=== PATIENT | male | born 1990 | race African-American/Black ===

== ENCOUNTER 2016-12-17 03:00 | Inpatient (IN) | payer OTHER ==
[~2016-12-17] VITALS: Ht 170.2 cm; Wt 53.1 kg
--- NOTE | ~2016-12-17 | PN ---
Unit #: [id number] #: [id number] Patient: ISAMAR ROGERS [id number] [facility] [address] [place] [address] [id number] MR#: [id number] NAME: ISAMAR ROGERS ROOM: P266 Age: 26 Sex: M Admission Date: 12/17/2016 : 1990 Attending Physician: Genoveva Moran M.D. Admitting Physician: Genoveva Moran M.D. Primary Care Physician: Primary Care Physician Leida GAMBOA PROGRESS NOTES DATE December 17, 2016 DISCUSSION Mr. Rogers is a 26-year-old male, who was seen today and chart was reviewed and the case was discussed with the staff. He remains anxious, withdrawn, depressive, and seclusive to himself, and has been expressing feelings of hopelessness. Meanwhile, he has been taking the medications and tolerating them fairly well with no reported side effects. MENTAL STATUS EXAMINATION Young male, who was casually dressed with fair personal hygiene and appears to be in no acute distress or discomfort. He was awake and alert with intact orientation. His mood is anxious and very depressed with a congruent affect. His speech is slow and restricted in content. He reports having suicidal ideations but denies any homicidal ideations, and also denies any auditory or visual hallucinations. His insight and judgment remain slightly impaired. TREATMENT PLAN 1. We will continue him on his current medications and treatment protocol, and will monitor his response to the medications, and make further adjustments as needed. 2. We will continue to followup. Dictated by... Adan Barbour/jerri TD: 12/19/2016 04:59 JOB #: [id number] Unit #: [id number] #: [id number] Patient: ISAMAR ROGERS COOPER PROGRESS NOTES Page 1 of 1 X Genoveva Moran MD PROGRESS NOTE
--- NOTE | ~2016-12-17 | A ---
[facility] Nutrition Therapy DATE: 12/18/16 Patient: ISAMAR RIVERA Physician: AFAIRF Address: [address] [place] [address] Room/Bed: [address], Zip: [place] [address] Admit Date: 12/17/16 Date of : [birth year] Height: 5 7 Weight: [phone] NUTRITIONAL ASSESSMENT: REASON: LOW BMI (18.3) PATIENT ADMITTED FOR SI AND DEPRESSION PMH: NONE Anthropometrics: HT: 67', WT: 117#, BMI: 18.3 Labs: NO LABS AVAILABLE Meds: CELEXA Assessment: PATIENT IS A 26 Y/O MALE ADMITTED FOR SI AND DEPRESSION. PATIENT IS CURRENTLY UNEMPLOYED, LIVES WITH HIS MOTHER, SMOKES 1 PPD, AND HAS WEEKLY ETOH AND MARIJUANA USE. IT IS NOTED THAT PATIENT HAS A HX OF OUTPATIENT PSYCH TREATMENT AND HE HAS BEEN NON-COMPLIANT WITH HIS MEDICATIONS. PER NEEDS ASSESSMENT PATIENT STATED A POOR APPETITE WITH A 20# WEIGHT LOSS OVER LAST SEVERAL MONTHS, AND HE HAS NOT BEEN SLEEPING. THERE IS NO WEIGHT HX RECORDED IN [facility]. NURSING REPORTS GOOD PO INTAKES. THERE ARE NO SKIN OR GI ISSUES NOTED ATT. CURRENT PSYCH MEDS MAY CAUSE WEIGHT AND APPETITE FLUCTUATIONS. PATIENT IS ON A REGULAR DIET. Dx: INADEQUATE NUTRIENT INTAKE R/T CURRENT CONDITION, DEPRESSION AEB LOW BMI, SELF-REPORTED WEIGHT LOSS AND DECREAESED APPETITE Intervention: REGULAR DIET, LARGER PORTIONS, MEDS PER MD, PSYCH Monitoring, Evaluation and Goals: 1. ADEQUATE PO INTAKES >50% OF MEALS 2. PREVENT, CORRECT MICRO/MACRO NUTRIENT DEFICIENCIES 3. WEIGHT; PROMOTE A STEADY WEIGHT GAIN TOWARDS A HEALTHY BMI OF 19-25, PREVENT WEIGHT LOSS MONITOR: WEIGHTS, LABS, PO/FLUID INTAKES Recommendations: 1. CONTINUE REGULAR DIET TOLERATED. OFFER SNACKS BETWEEN MEALS. WILL INCREASE ENTREES TO LARGER PORTIONS D/T NEED FOR INCREASED CALORIC INTAKE 2. ENCOURAGE ADEQUATE PO AND FLUID INTAKES 3. OBTAIN WEIGHTS ROUTINELY (EVERY 3-4 DAYS) [facility] Nutrition Therapy DATE: 12/18/16 Patient: ISAMAR RIVERA Physician: AFAIRF Address: [address] [place] [address] Room/Bed: [address], Zip: [place] [address] Admit Date: 12/17/16 Date of : [birth year] Height: 5 7 Weight: [id number] 4. IF PO INTAKES ARE BELOW 50% OF MEALS PLEASE ORDER ENSURE BID TO PROMOTE ADEQUATE KCAL AND PROTEIN INTAKES RD TO F/U PER PROTOCOL AND PRN R/T PATIENT MILDLY COMPROMISED Respectfully, APRIL NAIK, RD, LD Food and Nutritional Services [facility] cc: client file
--- NOTE | ~2016-12-17 | PA ---
Unit #: [id number] #: [id number] Patient: ISAMAR RIVERA [id number] [facility] [address] [place] [address] [id number] I MR#: [id number] NAME: ISAMAR RIVERA ROOM: P266 Age: 26 Sex: M Admission Date: 12/17/2016 : 1990 Date of Assessment: 12/17/2016 Attending Physician: Genoveva Moran M.D. Admitting Physician: Genoveva Moran M.D. Primary Care Physician: Primary Care Physician No PSYCHIATRIC ASSESSMENT DATE OF SERVICE 12/17/2016. IDENTIFYING DATA Mr. Petty is a 26-year-old, single, male who is a resident of [place], [place], and was transferred to us from [facility] on a mental inquest warrant which was dropped on 12/15/2016 and he was brought in again today by crisis intervention team after his mother called stating that the patient had a gun in his room and was holding it to his head. CHIEF COMPLAINT "I have stress building up and I feel suicidal." HISTORY OF PRESENT ILLNESS Mr. Rivera is a 26-year-old male with history of mood disorder, who is known to me from previous encounter, has been diagnosed with mood disorder, who was brought to the hospital by crisis intervention team after his mother called stating that the patient has been depressed and suicidal and has been in his room holding a gun to his head, and the patient was calm and cooperative and upon presentation, although was depressed with blunted affect, and was tearful and stated that he has been depressed lately due to issues with seeing his 8-month-old child and difficulty with the child's mother and also reports difficulty with his own mother with whom he lives and reports recent weight loss, poor sleep, poor appetite, and psychomotor retardation, feelings of hopelessness and helplessness, and suicidal ideations. He also reports loss of interest in doing things and that he threatened to hurt himself to get attention and also make statement "someone really want to do something, you won't be able to stop them." However, he was seen to be significant threat to himself and therefore, recommendation for inpatient level of care for safety and stabilization was made and the patient was transferred to us. SUBSTANCE ABUSE HISTORY The patient reports occasional experimentation with alcohol and cannabis, but denies any regular drug abuse. PAST PSYCHIATRIC HISTORY The patient has had history of outpatient psychiatric treatment at [facility] in the past and has a trial of Effexor, but reports that made me even worse and therefore, he has not been able to take his medication. Unit #: [id number] #: [id number] Patient: ISAMAR RIVERA PAST MEDICAL HISTORY No acute or chronic medical illnesses. ALLERGIES No known medication allergies. CURRENT MEDICATIONS None. PERSONAL AND SOCIAL HISTORY A 26-year-old male who reports that he is single and unemployed and lives at home with his mother and has poor social support system. MENTAL STATUS EXAMINATION Young male who was casually dressed with fair personal hygiene, appears to be in no acute distress or discomfort. He was awake and alert on interaction with intact orientation to time, place, and person. His mood was anxious and depressed with a congruent affect. His speech was slow and goal directed. He reports having suicidal ideations, but denies any homicidal ideations, and also denies any auditory or visual hallucinations. His insight and judgment remain significantly impaired. DIAGNOSTIC IMPRESSION Psychiatric: Major depressive disorder, recurrent, moderate, without psychotic features. Medical: None. Stressors: Moderate psychosocial stressors. TREATMENT PLAN 1. The patient has presented with a history of mood disorder and has been decompensating and will need inpatient hospitalization for safety and stabilization. We will start him back on his home medications. We will monitor his response and make further adjustments as needed. 2. Supportive therapy was provided to the patient. 3. Safe, structured, and nourishing environment will be provided. ESTIMATED LENGTH OF STAY 5 to 7 days. ABILITY TO HELP SELF Limited. WILLINGNESS TO HELP SELF The patient appears to be willing to help self. STRENGTHS 1. Communicative. 2. Cooperative. PROBLEMS 1. Chronic dysphoric symptoms. 2. Poor social support system. DISCHARGE CRITERIA This will be contingent upon the patient's ability to show resolution of his depression and anxiety as well as his ability to stay safe to himself, particularly after discharge from the hospital. Unit #: [id number] #: [id number] Patient: ISAMAR RIVERA Dictated by... Genoveva Moran M.D. RAND/mal TD: 12/17/2016 14:04 JOB #: [id number] PSYCHIATRIC ASSESSMENT Page 1 of 1 X Genoveva Moran MD PSYCHIATRIC ASSESSMENT
--- NOTE | ~2016-12-17 | HP ---
Unit #: [id number] #: [id number] Patient: SHOLA RIVERA [id number] [place] [address] [id number] I MR#: [id number] NAME: SHOLA RIVERA. ROOM: P266 Age: 26 Sex: M Admission Date: 12/17/2016 : 1990 Attending Physician: Genoveva Moran M.D. Admitting Physician: Genoveva Moran M.D. Primary Care Physician: Primary Care Physician No HISTORY AND PHYSICAL HISTORY OF PRESENT ILLNESS Shola is a 26-year-old male admitted on 12/17/[address] [place] [address] for suicidal threatening by shooting himself with a gun. PAST MEDICAL HISTORY None. PAST SURGICAL HISTORY None. SOCIAL HISTORY Smokes one pack of cigarettes daily, occasional alcohol use and occasional marijuana use. He is currently single and living with his mother. FAMILY HISTORY Noncontributory. REVIEW OF SYSTEMS CONSTITUTIONAL: No fever or chills. HEENT: Denies any sore throat, ear pain or runny nose. CARDIOVASCULAR: Denies chest pain, irregular heart rhythm or palpitations. CHEST: Denies shortness of breath or cough. No hemoptysis. GASTROINTESTINAL: Denies nausea, vomiting, diarrhea or chronic constipation. ENDOCRINE: Denies history of increased thirst or urination. No recent significant weight loss or gain. GENITOURINARY: Denies dysuria, frequency, or hematuria. SKIN: Denies any rashes. HEMATOLOGIC: Denies history of increased bleeding or bruising. MUSCULOSKELETAL: Denies any hot, swollen joints. No generalized muscle pain. NEUROLOGIC: Denies problems with vision or speech. No frequent, severe headaches. No numbness, tingling or weakness in any extremities. Denies loss of bladder or bowel control. CURRENT MEDICATIONS None. ALLERGIES None. Unit #: [id number] #: [id number] Patient: SHOLA RIVERA PHYSICAL EXAMINATION GENERAL: Alert, oriented, in no acute distress. VITAL SIGNS: Blood pressure 138/106, heart rate 67. HEIGHT: 5 foot 7 inches. WEIGHT: 117 pounds. SKIN: Warm and dry without rash or lesion. HEENT: Normocephalic. TMs not viewed. Oral and nasal passages clear. Conjunctivae clear. PERRLA. EOMs intact. NECK: Supple without lymphadenopathy or thyromegaly. HEART: Regular rate and rhythm without murmur. LUNGS: Clear. ABDOMEN: Soft, nontender, without masses or hepatosplenomegaly. : Not done. EXTREMITIES: No evidence of cyanosis, clubbing or edema. Moves all without focal deficit. NEUROLOGICAL: Grossly within normal limits. Cranial Nerves: II: Visual marquis are intact. III, IV AND : Extraocular movements are intact. Pupils are equal, round and reactive to light. V: Facial sensation is grossly normal. VII: Facial movements and expression are normal. VIII: Auditory acuity grossly intact. IX, X: Uvula is midline. Phonation is normal. XI: Patient shrugs shoulders and turns head normally. XII: Tongue protrudes in the midline. Sensory and Motor Function: Sensory and motor sensation is grossly normal. Motor: moves all extremities well. Coordination: Gait is normal. Deep Tendon Reflexes: Intact. IMPRESSION Psychiatric admission. RECOMMENDATIONS Psychiatric, per psychiatrist. MEDICAL: I see no contraindications to participating in facility's activities. MEDICAL PROGNOSIS Good. MEDICAL CONDITION Stable. Dictated by... Zeeshan Shi/ben TD: 12/18/2016 00:48 JOB #: [id number] Unit #: [id number] #: [id number] Patient: SHOLA RIVERA HISTORY AND PHYSICAL Page 1 of 1 X DARELL HAMMOND APRN HISTORY AND PHYSICAL
--- NOTE | ~2016-12-17 | DS ---
Unit #: [id number] #: [id number] Patient: ISAMAR RIVERA [id number] [facility] [address] [place] [address] [id number] MR#: [id number] NAME: ISAMAR RIVERA ROOM: [facility] Age: 26 Sex: M Admission Date: 12/17/2016 : 1990 Discharge Date: 12/19/2016 Attending Physician: Genoveva Moran M.D. Primary Care Physician: Primary Care Physician No DISCHARGE SUMMARY REASON FOR ADMISSION Depression. DIAGNOSTIC STUDIES LABORATORY RESULTS: Unremarkable. HOSPITAL COURSE The patient was admitted to the inpatient unit on 12/17/2016 and discharged on 12/19/2016. The patient was treated on the inpatient unit with group therapy, medication management, pastoral care, psychoeducation, and psychotherapy. The patient was responsive to treatment. Subsequently, the patient was discharged with a plan to follow up in outpatient program. DISCHARGE MEDICATIONS Celexa 20 mg daily for depression. DISCHARGE DIAGNOSES Psychiatric: Major depressive disorder, recurrent, severe, F33.2. Secondary diagnosis: Deferred. Medical diagnosis: None. Stressors: Psychosocial stressors. DISCHARGE INSTRUCTIONS The patient to follow up in outpatient clinic as per social services specialist. CONDITION ON DISCHARGE The patient was pleasant and cooperative. Denied any psychotic symptoms or any suicidal ideation. PROGNOSIS Guarded. DIET AND ACTIVITY As tolerated. Dictated by... Mohinder Kumari M.D. Unit #: [id number] #: [id number] Patient: ISAMAR RIVERA SZC/modl TD: 12/19/2016 20:51 JOB #: [id number] DISCHARGE SUMMARY Page 1 of 1 X Mohinder Kumari MD X DISCHARGE SUMMARY
--- NOTE | ~2016-12-17 | PN ---
Unit #: [id number] #: [id number] Patient: SHOLA ROGERS [id number] [facility] [address] [place] [address] [id number] MR#: [id number] NAME: SHOLA ROGERS ROOM: 66 Age: 26 Sex: M Admission Date: 12/17/2016 : 1990 Attending Physician: Genoveva Moran M.D. Admitting Physician: Genoveva Moran M.D. Primary Care Physician: Primary Care Physician No [facility] PROGRESS NOTES DATE OF SERVICE 12/18/2016 DISCUSSION Shola Rogers is a 26-year-old male seen on 12/18/2016. The patient interviewed, chart reviewed. Obtained information from nursing staff. The patient reports mood is getting better. Decrease in anxiety and depression. Participating in program. Overall making progress. Complete Review of Systems: Unremarkable. MENTAL STATUS EXAMINATION General Appearance: The patient dressed casually. Attention span, concentration: Fair. Oriented in time, place, and person. Mood and affect: Sad, depressed. Speech: Monotone. Thought process: Clark. The patient denied any thoughts of harming self or others or any psychotic symptom but still seclusive. Recent and remote memory: Poor. Insight and judgment: Poor. DIAGNOSIS Mood disorder not otherwise specified. ASSESSMENT/PLAN Advised to continue with current medication and therapeutic protocol. If needed, consider further adjustment of medication. Dictated by... Adan Gonzalez/aidan TD: 12/20/2016 09:38 JOB #: [id number] Unit #: [id number] #: [id number] Patient: SHOLA ROGERS PROGRESS NOTES Page 1 of 1 X Mohinder Kumari MD X PROGRESS NOTE
[2016-12-18 10:59] LABS: BASOPHIL% 0.7 % (0-2.5); EOSINOPHIL# 0.2 X10e3 (0-0.7); EOSINOPHIL% 2.6 % (0.0-7.0); HEMATOCRIT 51.7 % (38.0-50.0); HEMOGLOBIN 17.8 gm/dL (13.0-16.0); LYMPHOCYTE# 3.7 X10e3 (1.0-3.5); LYMPHOCYTE% 56.2 % (17.0-45.0); MEAN CELL VOLUME 97.4 FL (83-96); MEAN CORPUSCULAR HEMOGLOBIN 33.5 PG (28-34); MEAN CORPUSCULAR HGB CONC 34.4 g/dL (30-36); MEAN PLATELET VOLUME 10.6 FL (6.5-11.5); MONOCYTE# 0.9 X10e3 (0-1.0); MONOCYTE% 13.9 % (3.0-12.0); NEUTROPHIL# 1.7 X10e3 (1.5-7.1); NEUTROPHIL% 26.6 % (40-75); PLATELET COUNT 162 X10e3 (140-420); RED BLOOD COUNT 5.31 X10e (3.90-5.60); RED CELL DISTRIBUTION WIDTH 12.6 % (11.0-15.5); WHITE BLOOD COUNT 6.6 X10e3 (4.0-10.5)
[2016-12-18 11:17] LABS: ALBUMIN SERUM 4.6 g/dL (3.5-5.0); BILIRUBIN,TOTAL 1.1 mg/dL (0.2-2.0); BUN/CREATININE RATIO 12.3; CALCIUM SERUM 9.9 mg/dL (8.4-10.2); CREATININE SERUM 1.3 mg/dL (0.6-1.4); GLOM FILT RATE Estimated 88.5 mL/min (>60); POTASSIUM 4.9 mmol/L (3.5-5.1); PROTEIN TOTAL SERUM 8.1 g/dL (6.0-8.3)
[2016-12-18 12:37] LABS: DIFF IND YES
[2016-12-18 12:39] LABS: PLATELET ESTIMATE NORMAL (NORMAL)
== END 2016-12-19 10:15 | disposition home or self-care (01) | DRG 885 ==
LOC: P2L 06:51
PROVIDERS: Psychiatry & Neurology Psychiatry
DX: F33.1 Major depressive disorder, recurrent, moderate (principal); F17.210 Nicotine dependence, cigarettes, uncomplicated
CPT/HCPCS: 80053; 85025